=== PATIENT | male | born 1965 | race Native Hawaiian/Other Pacific Islander ===

== ENCOUNTER 2019-10-13 12:50 | Day surgery (SDC) | payer OTHER ==
--- NOTE | 2019-10-12 14:09 | Short Stay Summary ---
Short Stay Documentation Date of service: 10/13/19 - History H&P: obtained from office - Allergies and Medications Current Medications: Allergies No Known Allergies Allergy (Verified 10/12/19 12:45) Home Medications Medication Instructions Recorded Confirmed Last Taken Type No Known Home Medications [No 10/12/19 10/12/19 Unknown History Reported Home Medications] - Brief post op/procedure progress note Date of procedure: 10/13/19 (dictation:[id number]) Pre-op diagnosis: incarcerated umbilical hernia Post-op diagnosis: same Procedure: robotic assisted lap umbo hernia repair IVF 1500cc EBL ~50cc Anesthesia: GETA Findings: 2cm fascial defect at umbo incarcerated omentum and preperitoneal fat Surgeon: JOHAN SAUCEDO Belt Glass Sander: CELINA BENÍTEZ Estimated blood loss: 50-100ml Pathology: none Condition: stable - Hospital course Hospital course: uneventful - Disposition Condition at discharge: Stable Disposition: DC-01 TO HOME OR SELFCARE Short Stay Discharge Plan Activity: advance as tolerated Diet: regular Wound: open to air, keep clean and dry Special Instructions: no heavy lifting Additional Instructions: Post Operative Instructions Activity: no heavy lifting for next 1 week. May shower tomorrow. Pat dry the wound or wounds. Keep incision sites clean and dry. Change gauze over belly button daily. Wear abdominal binder daily. After surgery, start with a light diet. Consider starting with liquids. If you do well, you can advance to a regular diet as you feel comfortable. Apply an ice pack to the wound or wounds for 10-20 minutes at a time. Do this at least 4-5 times a day. You can do it more if he would like. Pain Medication Schedule for the first 2 days after surgery: Gabapentin 900mg twice a day Celebrex (celecoxib) 200mg twice a day Tylenol 500mg four times a day (every 6 hours) After the first 2 days, then take alternating doses of ibuprofen and Tylenol as needed for pain. Take 600 mg of ibuprofen every 6 hours as needed. Take 500 mg of Tylenol every 6 hours as needed. You should alternate these 2 medicines. Make sure you take the ibuprofen with food. It is very important that you use the prescription narcotic pain medicine (oxycodone) only for very severe pain. Do not take the narcotic medicine before you try using all the medications listed above. We will call you in a couple of days to see how youre doing. If you have any questions or concerns, always feel free to call the clinic ([phone]) at any time. Follow up with: CHRIS GUERRERO MD [Referring] - 7 Days JOHAN SAUCEDO MD [Staff Physician] - 14 Days Forms: Outpatient Surgery DC Inst. Prescriptions: Celecoxib [celeBREX] 200 mg PO BID #4 capsule Gabapentin 900 mg PO BID #12 cap Oxycodone HCl/Acetaminophen [Percocet 7.5/325 mg] 1 each PO Q6HR PRN #20 tablet PRN Reason: Pain , Severe (7-10)
[~2019-10-13 12:50] MED LIST: ACETAMINOPHEN 500 MG TAB PO ONE; CELECOXIB 200 MG CAP PO NR; GABAPENTIN 400 MG CAP PO SCH; SODIUM CHLORIDE 0.9% 1000 ML 1,000 ML IV SCH; ceFAZolin/Water 2 GM/20 ML 2 GM/20 ML SYRINGE IV NR
[2019-10-13] MEDS ORDERED: MIDAZOLAM 2 MG/2 ML INJ IV NR (13:10)
[2019-10-13] MEDS ORDERED: FAMOTIDINE 20 MG TAB PO NR (13:10)
[2019-10-13] MEDS ORDERED: FAMOTIDINE 20 MG TAB ONE (13:28)
--- NOTE | 2019-10-13 13:31 | Anesthesia Consultation ---
Anesthesia Consult and Med Hx Date of service: 10/13/19 - Airway Anesthetic Teeth Evaluation: Good ROM Head & Neck: Adequate Mental/Hyoid Distance: Adequate Mallampati Class: Class II Intubation Access Assessment: Good - Pulmonary Exam CTA: Yes - Cardiac Exam Cardiac Exam: No Murmur - Pre-Operative Health Status ASA Pre-Surgery Classification: ASA2 - Pulmonary Hx Smoking: Yes (IN HIS 20'S QUIT OVER 10YRS AGO) - Cardiovascular System Hx Hypertension: Yes (2016) - Central Nervous System Hx Psychiatric Problems: No - Other Systems Hx Alcohol Use: Yes ([facility]) Hx Substance Use: No Hx Cancer: No
--- NOTE | 2019-10-13 13:32 | Anesthesia Day of Surgery ---
Anesthesia Day of Surgery - Day of Surgery Patient Examined: Yes Patient H&P Reviewed: Yes Patient is NPO: Yes
[2019-10-13] MEDS ORDERED: ACETAMINOPHEN 500 MG TAB ONE (15:06)
[2019-10-13] MEDS ORDERED: HYDROmorphone 1 MG/1 ML INJ ONE (17:16)
[2019-10-13] MEDS ORDERED: propofoL 200 MG/20 ML VIAL IV ONE (17:16)
[2019-10-13] MEDS ORDERED: ROCURONIUM 50 MG/5 ML INJ IV ONE (17:17)
[2019-10-13] MEDS ORDERED: LIDOCAINE MPF (2%) 20 MG/1 ML VIAL 5 ML ONE (17:17)
[2019-10-13] MEDS ORDERED: BUPIVACAINE-EPINEPHRINE/PF 0.5%-1:200,000 (30 ML) VIAL INFILTRATI ONE ×2 (17:27→19:45)
[2019-10-13] MEDS ORDERED: LIDOCAINE (1%) 10 MG/1 ML VIAL 20 ML MDV ONE (17:27)
[2019-10-13] MEDS ORDERED: BUPIVACAINE/PF (0.5%) 5 MG/1 ML 30 ML VIAL INFILTRATI ONE ×2 (17:38→18:11)
[2019-10-13] MEDS ORDERED: WATER FOR IRRIG STERILE 1,500 ML BOTTLE IR ONE (18:11)
--- NOTE | 2019-10-13 18:20 | Procedure Note ---
Date of procedure: 10/13/19 Pre-op diagnosis: Mass right 3rd finger Post-op diagnosis: same Procedure: Excisional biopsy right third finger Procedure Patient was brought to the OR and placed on the OR table in the supine position following induction and intubation by anesthesia the patient's right upper extremity was prepped and draped in the usual sterile manner. A timeout procedure was done to identify the patient and the correct operative site next the arm was exsanguinated followed by inflation of the pneumatic tourniquet to 250 mmHg. Using a bayonet type incision centered over the distal interphalangeal joint incision was carried down sharply through skin subcu tissue Next we encountered a brownish-yellow lobular mass overlying the distal phalanx this mass was shelled out from the surrounding tissue and given to scrub nurse for pathological evaluation observing the surgical site did did not appear to be any invasive type tissue noted the tendon extensor tendon appeared to be intact as well with no involvement of the nailbed following this the wound was irrigated the incision was closed with 3-0 nylon in an interrupted fashion routine postop dressings were applied the patient tolerated this portion of the procedure. Patient also will undergo a robotically assisted repair of umbilical hernia to be done by the general surgery staff Anesthesia: LITTLEA Surgeon: EDY LOMAX Estimated blood loss: minimal Pathology: list (mass right 2nd finger) Specimen disposition: to lab Condition: stable Disposition: PACU
[2019-10-13] MEDS ORDERED: ePHEDrine SULFATE 50 MG/1 ML INJ ONE (18:35)
[2019-10-13] MEDS ORDERED: SODIUM CHLORIDE 0.9% 1000 ML 1,000 ML ONE (19:06)
[2019-10-13] MEDS ORDERED: LIDOCAINE (1%) 10 MG/1 ML VIAL 20 ML MDV INFILTRATI ONE (19:45)
[2019-10-13] MEDS ORDERED: ONDANSETRON 4 MG/2 ML INJ ONE (20:02)
[2019-10-13] MEDS ORDERED: KETOROLAC 30 MG/1 ML INJ ONE (20:02)
[2019-10-13] MEDS ORDERED: NEOSTIGMINE 10MG/10 ML INJ MDV ONE (20:02)
[2019-10-13] MEDS ORDERED: GLYCOPYRROLATE 0.4 MG/2 ML INJ ONE (20:02)
[2019-10-13] MEDS ORDERED: HYDROmorphone 1 MG/1 ML INJ IV PRN (20:16)
[2019-10-13] MEDS ORDERED: ONDANSETRON 4 MG/2 ML INJ IV PRN (20:16)
[2019-10-13] MEDS ORDERED: oxyCODONE 5 MG TAB PO ONE ×2 (20:57)
[2019-10-13] MEDS ORDERED: oxyCODONE /ACETAMINOPHEN 5-325MG TAB PO ONE (20:57)
[2019-10-13 21:34] VITALS: BP 152/91
--- NOTE | 2019-10-15 21:46 | Operative Report ---
PREOPERATIVE DIAGNOSIS: Incarcerated umbilical hernia. POSTOPERATIVE DIAGNOSIS: Incarcerated umbilical hernia. PROCEDURE: Robotic-assisted laparoscopic umbilical hernia repair. ATTENDING PHYSICIAN: Dayo Olivera MD CARTON MACHINE OPERATOR: Dr. Shearer. ANESTHESIA: General. ESTIMATED BLOOD LOSS: Approximately 50 mL. FLUIDS: 1500 mL. FINDINGS: Large amount of omental fat was incarcerated in the umbilical hernia, fascial defect was approximately 2 cm. Some preperitoneal fat was also incarcerated in the umbilical hernia. IMPLANTS: Prolene mesh cut to about 10 x 10 cm. DRAINS: None. COMPLICATIONS: None. DISPOSITION: Stable, transferred to Recovery Room. INDICATIONS: This is a 53-year-old male who presented to the clinic with complaints of enlarging umbilical hernia and that was very painful. The patient is assessed to be in need for robotic repair. Procedure, risks, benefits were explained to the patient. Risks included but were not limited to infection, bleeding, pain, injury to surrounding structures, possible need for further surgery in the future, possible recurrence. The patient understood and consented. OPERATIVE NOTE: The patient was brought to the operating room and placed on the table in supine position. After adequate general anesthesia was established, the patient was prepped and draped in usual sterile fashion. SCDs were in place. Antibiotics have been given. All pressure points were padded. Timeout was called. We began by placing a Veress needle in left upper quadrant. I was able to insufflate on the first attempt. Using the Optiview technique, we placed a 5-mm port in the right upper quadrant. We entered the peritoneal cavity safely. We examined the area where the Veress needle was. There was no injury to the underlying structures. Veress needle was removed. Under direct vision, we placed a 12-mm port in the mid portion of the right side of the abdomen, an 8-mm port in the right lower quadrant and then replaced the 5-mm port with an 8. I began by creating the preperitoneal flap and I was able to successfully reduce all of the contents. A large amount of omental fat was stuck in the umbilical hernia. We completely reduced the incarcerated tissue as well as create a large peritoneal flap. I then closed the fascial defect with a 0 V-Loc suture after we made sure there was nothing left in the hernia sac. We did not tack down the hernia sac as the skin was fairly thin from probably a prolonged period of stretching of the tissue from the hernia. I then attached the mesh to the center of the fascial repair with a 2-0 V-Loc suture and then brought it out towards me so that I would eventually use it to help close the peritoneum. We had excellent hemostasis and the mesh laid very well. I then used a 3-0 V-Loc suture to close the peritoneal defect. We used a portion of that 2-0 V-Loc that we used for the mesh also to reinforce the peritoneal closure. There was a small opening where we had removed the peritoneum from the umbilical hernia. This was closed with a 3-0 V-Loc suture. Everything was very hemostatic. We had no problems, no issues, we then converted back to laparoscopic. We removed all the needles, count was correct, we removed the Ray-Brendon gauze that we had placed in it and we closed the 12 mm port site with a Russell-Teresa fascial closure device using a 2-0 PDS suture. Skin was cleaned and dried. Additional local was injected, 4-0 Monocryl was used to close the skin sites with interrupted subcuticular stitches. Skin was cleaned and dried, dressings were placed. We placed a wad of gauze in the umbilicus to push down the tissue hoping to help with scar down and cover that with a Tegaderm. The patient tolerated the procedure well. There were no complications. All counts were correct at the end of the case. JOB# [id number] FLY/JB BARLOW
== END 2019-10-13 22:10 | disposition home or self-care (01) ==
LOC: OR 12:50
PROVIDERS: ATTEND Surgery
DX: K42.0 Umbilical hernia with obstruction, without gangrene (principal); M79.89 Other specified soft tissue disorders; M27.1 Giant cell granuloma, central; E78.00 Pure hypercholesterolemia, unspecified; I10 Essential (primary) hypertension; K21.9 Gastro-esophageal reflux disease without esophagitis; Z72.89 Other problems related to lifestyle; Z98.890 Other specified postprocedural states; Z90.49 Acquired absence of other specified parts of digestive tract; Z87.891 Personal history of nicotine dependence; Z79.899 Other long term (current) drug therapy
CPT/HCPCS: 26160; 49653; 88305; 88311; C1781; J0690; J1170; J1885; J2250; J2405; J2704; J2710; J7030; S2900; 88307